=== PATIENT | female | born 1970 | race Caucasian/White ===

== ENCOUNTER 2018-06-29 15:06 | Outpatient (CLI) | payer OTHER ==
--- NOTE | 2018-06-29 15:39 | XRAY Report ---
Procedure Date: 06/29/2018 Accession Number: [id number] / [id number] Procedure: XRN - Chest 2 View X-Ray CPT Code: 67525 FULL RESULT: EXAM: CHEST RADIOGRAPHY EXAM DATE: 06/29/2018 03:15 PM. CLINICAL HISTORY: 6 weeks of cough, smoke exposure, no fever. COMPARISON: None. TECHNIQUE: 2 views. FINDINGS: Lungs/Pleura: No focal opacities evident. No pleural effusion. No pneumothorax. Normal volumes. Mediastinum: Heart and mediastinal contours are unremarkable. Other: None. IMPRESSION: Normal 2-view chest radiography. [facility]
== END 2018-06-29 15:07 | disposition home or self-care (01) ==
LOC: DI.N 15:06
PROVIDERS: ATTEND Family Medicine
DX: R05 Cough (principal)
CPT/HCPCS: 71046

== ENCOUNTER 2018-08-28 12:23 | Emergency (ER) | payer OTHER ==
--- NOTE | 2018-08-28 14:46 | ED Physician Documentation ---
PD HPI OPHTHO - Stated complaint Stated Complaint: LEFT EYE SWOLLEN - Chief complaint Chief Complaint: Heent - History obtained from History obtained from: Patient - History of Present Illness Timing - onset: How many days ago (2-3) Timing - duration: Days Timing - details: Gradual onset, Still present Location: Left (eyelid laterally) Quality / character: Aching, Throbbing Associated symptoms: Redness, Swelling. No: Discharge, FB sensation Contributing factors: No: Recent URI, FB, Wears contacts Similar symptoms before: Has not had sx before Recently seen: Not recently seen Review of Systems Constitutional: denies: Fever, Chills, Myalgias Eyes: denies: Loss of vision, Decreased vision, Photophobia Skin: reports: Lesions (redness and swelling lateral upper eyelid on left.) PD PAST MEDICAL HISTORY - Past Medical History Cardiovascular: None Derm: None - Present Medications Home Medications: Ambulatory Orders Medication Instructions Recorded Confirmed Chlorhexidine Gluconate [Hibiclens] 10 ml TP DAILY #473 ml 08/28/18 Doxycycline Monohydrate 100 mg PO BID #14 tablet 08/28/18 HYDROcod/ACETAM 5/325 [[place] 5/325] 1 tab PO Q6H PRN #10 tablet 08/28/18 - Allergies Allergies/Adverse Reactions: Allergies Allergy/AdvReac Type Severity Reaction Status Date / Time No Known Drug Allergies Allergy Verified 08/28/18 12:30 PD ED PE NORMAL - Vitals Vital signs reviewed: Yes - General General: Alert and oriented X 3, No acute distress, Well developed/nourished - HEENT HEENT: PERRL, EOMI, Other (no FB of eye. Left lateral upper lid with redness and swelling of upper part of the lid, not really at eyelid margin like typical stye. No drainage but has small pointed pustule. ) Results - Vitals Vitals: Vital Signs - 24 hr 08/28/18 12:28 Temperature 36.8 C Heart Rate 86 Respiratory 15 Rate Blood Pressure 168/103 H O2 Saturation 98 Oxygen O2 Source Room air PD MEDICAL DECISION MAKING - ED course Complexity details: considered differential (not sure if stye per se, or staph infection of the skin of eyelid, but would treat similarly. ), d/w patient Departure - Departure Disposition: 01 Home, Self Care Clinical Impression: Infection of eyelid Condition: Stable Record reviewed to determine appropriate education?: Yes Instructions: ED Staph Infec Abx Tx Only Follow-Up: Phong Grover MD [Primary Care Provider] - Prescriptions: Chlorhexidine Gluconate [Hibiclens] 10 ml TP DAILY #473 ml Doxycycline Monohydrate 100 mg PO BID #14 tablet HYDROcod/ACETAM 5/325 [[place] 5/325] 1 tab PO Q6H PRN #10 tablet PRN Reason: Pain Comments: Warm moist towels to the area to promote drainage from the infection. Doxycycline twice daily for a week for the infection. Cleanse the skin face and whole body with Hibiclens daily with your shower to reduce germs overall on your skin. Recheck if not improved over the next several days. Tylenol or ibuprofen if needed for pains and add hydrocodone if needed for worse pain. Forms: Activity restrictions Discharge Date/Time: 08/28/18 15:10
[2018-08-28] MEDS ORDERED: ACETAMINOPHEN 325 MG TABLET PO STA (15:01)
[2018-08-28] MEDS ORDERED: DOXYCYCLINE 100 MG TABLET PO STA (15:01)
[2018-08-28 15:41] VITALS: BP 156/89
== END 2018-08-28 15:10 | disposition home or self-care (01) ==
LOC: ED 12:23
DX: H01.9 Unspecified inflammation of eyelid (principal)
CPT/HCPCS: 87070; 87181; 87205; 99283; A9270